=== PATIENT | female | born 1945 | race Caucasian/White ===

== ENCOUNTER 2017-02-08 11:18 | Outpatient (CLI) | payer MEDICARE, OTHER ==
--- NOTE | 2017-02-08 13:57 | BD ---
BONE DENSITOMETRY USING DEXA: Date: 02/08/17 HISTORY: Postmenopausal screening for osteoporosis. FINDINGS: Lumbar Spine: BMD (g/cm2) L1 0.585 T-Score: -3.7 Z-Score: -1.5 L2 0.655 T-Score: -3.4 Z-Score: -1.0 L3 0.715 T-Score: -3.4 Z-Score: -0.8 L4 0.777 T-Score: -2.6 Z-Score: 0.0 L1-L4 0.687 T-Score: -3.3 Z-Score: -0.9 Femoral Neck: 0.561 T-Score: -2.6 Z-Score: -0.6 Total Femur: 0.644 T-Score: -2.4 Z-Score: -0.5 IMPRESSION: Osteoporosis. POS: [facility]
--- NOTE | 2017-02-12 10:26 | MMO ---
BILATERAL SCREENING MAMMOGRAM: INDICATION: Annual exam. COMPARISON: Prior exam dated 01/20/13. FINDINGS: The interpretation of this exam was assisted with computer-aided detection. The breast parenchyma is heterogeneously dense. There are benign-appearing calcifications within the right and left breasts. No suspicious mass, cluster of microcalcifications, or area of architectural distortion is evident. IMPRESSION: BI-RADS category 2 - benign. Recommend routine annual mammographic screening. POS: [facility]
== END 2017-02-08 11:19 | disposition home or self-care (01) ==
LOC: MAMMO 11:18
PROVIDERS: ATTEND Family Medicine
DX: Z12.31 Encounter for screening mammogram for malignant neoplasm of breast (principal); M81.0 Age-related osteoporosis without current pathological fracture; Z78.0 Asymptomatic menopausal state
CPT/HCPCS: 77080; G0202; 77067

== ENCOUNTER 2017-02-14 09:18 | Outpatient (CLI) | payer OTHER | END 2017-02-14 09:19 | disposition home or self-care (01) | LOC: DTY/OP 09:18 | PROVIDERS: ATTEND Family Medicine | DX: G40.209 Localization-related (focal) (partial) symptomatic epilepsy and epileptic syndromes with complex partial seizures, not intractable, without status epilepticus (principal) | CPT/HCPCS: 97802 ==

== ENCOUNTER 2017-03-10 16:22 | Emergency (ER) | payer MEDICARE, OTHER ==
[2017-03-10 17:14] LABS: #Eosinphils 0.2 thou/uL (0.0-0.7); #Lymphocytes 1.1 thou/uL (1.20-3.40); #Monocytes 1.2 thou/uL (0.11-0.59); #Neutrophils 10.4 thou/uL (1.40-6.50); %Basophils 0.2 % (0.0-1.0); %Eosinophils 1.3 % (0.0-10.0); %Lymphocytes 8.6 % (21.0-51.0); Hematocrit 42.8 % (36.0-47.0); Mean Platelet Volume 7.5 fL (7.4-10.4); Red Blood Cell (RBC) Count 4.32 mill/uL (4.20-5.40); White Blood Cell (WBC) Count 12.8 thou/uL (4.8-10.8)
[2017-03-10 17:20] LABS: PTT 29.8 SEC (22.9-36.1); Prothrombin Time 14.6 SEC (12.0-14.7)
[2017-03-10 17:32] LABS: Anion Gap 13 mmol/L (10-20); BUN (Urea Nitrogen) 25 mg/dL (9.8-20.1); CK (CPK) 35 U/L (29-168); Calc. Creatinine Clearance 0 mL/min (70-130); Calcium 9.8 mg/dL (7.8-10.44); Carbon Dioxide 35 mmol/L (23-31); Chloride 100 mmol/L (98-107); Estimated GFR-MDRD 76; Magnesium 2.5 mg/dL (1.6-2.6)
[2017-03-10 17:37] LABS: Troponin I 0.016 ng/mL (< 0.028)
--- NOTE | 2017-03-10 17:53 | RAD ---
CHEST ONE VIEW PORTABLE: History: 71-year-old female with history of fall backwards and hitting her head after passing out. Comparison: 08-07-16 FINDINGS: Increased linear and interstitial markings are noted bilaterally, stable from prior study, evidence for chronic disease. Heart size is normal. No confluent pneumonia, overt edema, or pleural effusion. No pneumothorax. IMPRESSION: Stable chronic changes. No acute process. POS: [facility]
[2017-03-10 18:00] LABS: Bilirubin Negative (Negative); Blood, Urine Small (Negative); Glucose, Urine (Dipstick) Negative (Negative); Ketone, Urine Negative (Negative); Nitrite Negative (Negative); Protein, Urine (Dipstick) Negative (Neg-Trace); Urobilinogen 0.2 mg/dL (0.2-1.0)
[2017-03-10 18:03] LABS: Hyaline Casts/LPF 0-3 HYALINE CAST LPF (0-3 Hyaline); Squamous Epithelial 0-3 HPF (0-3)
[2017-03-10 18:17] LABS: Bacteria/HPF 2+ HPF (None Seen); Yeast-All Forms Rare HPF (None Seen)
--- NOTE | 2017-03-10 18:18 | CT ---
BRAIN CT WITHOUT IV CONTRAST: History: 71-year-old female who fell backwards and hit the back of her head with loss of consciousness and po ssible associated seizure. FINDINGS: There is some minimal atrophy and chronic white matter ischemic change. No mass or midline shift. No intra or extraaxial hemorrhage. Scalp swelling and injury to the occipital region. IMPRESSION: No acute intracranial process. No mass or bleed. Occipital soft tissue swelling and scalp injury. POS: [facility]
--- NOTE | 2017-03-10 18:19 | CT ---
CERVICAL SPINE CT SCAN WITHOUT IV CONTRAST: History: 71-year-old female with a history of falling backwards and hitting her head with possible seizure. FINDINGS: There are some generalized spondylosis changes of the cervical spine with some multilevel disc osteo phytosis and facet arthrosis. No evidence for acute fracture or facet dislocation. IMPRESSION: No evidence for acute fracture or dislocation. Evidence for spondylosis. Incidental biapical pleural thickening. POS: [facility]
[2017-03-10] MEDS ORDERED: cefTRIAXone\\ROCEPHIN 1 GM VIAL ONE (18:44)
[2017-03-10] MEDS ORDERED: Acetaminophen 325 MG TAB ONE ×2 (19:28)
== END 2017-03-10 19:40 | disposition home or self-care (01) ==
LOC: ERS 16:22
DX: S00.03XA Contusion of scalp, initial encounter (principal); R56.9 Unspecified convulsions; N39.0 Urinary tract infection, site not specified; F41.9 Anxiety disorder, unspecified; W01.198A Fall on same level from slipping, tripping and stumbling with subsequent striking against other object, initial encounter
CPT/HCPCS: 36415; 51701; 70450; 71010; 72125; 80048; 81003; 81015; 82553; 83735; 84146; 84484; 85025; 85610; 85730; 93005; 96374; A4353; J0696

== ENCOUNTER 2017-03-25 08:42 | Outpatient (CLI) | payer MEDICARE, OTHER ==
[2017-03-25 09:09] LABS: Bilirubin Negative (Negative); Blood, Urine Small (Negative); Glucose, Urine (Dipstick) Negative (Negative); Ketone, Urine 15 mg/dL (Negative); Nitrite Negative (Negative); Protein, Urine (Dipstick) Negative (Neg-Trace); Urobilinogen 0.2 mg/dL (0.2-1.0)
[2017-03-25 09:45] LABS: Squamous Epithelial 0-3 HPF (0-3)
[2017-03-25 09:46] LABS: Bacteria/HPF Rare-Few HPF (None Seen)
--- NOTE | 2017-03-25 11:23 | RAD ---
EXAM: THREE VIEWS SACRUM AND COCCYX: HISTORY: The patient fell in February. Pain. COMPARISON: None. FINDINGS: Limited evaluation of sacral alae. Based on the lateral projection, no definite fracture or disloca tion. IMPRESSION: No definite fracture or dislocation. POS: [facility]
== END 2017-03-25 08:43 | disposition home or self-care (01) ==
LOC: SCSRAD 08:42
PROVIDERS: ATTEND Family Medicine
DX: R82.90 Unspecified abnormal findings in urine (principal)
CPT/HCPCS: 72220; 81001; 87086

== ENCOUNTER 2018-01-10 09:06 | Outpatient (CLI) | payer MEDICARE ==
--- NOTE | 2018-01-10 13:04 | CT ---
CT HEAD NONCONTRAST: Date: 01/10/18 HISTORY: Seizure. Head injury. COMPARISON: 03/10/17. FINDINGS: There is no evidence of acute intracranial hemorrhage or infarct. The ventricles appear normal in siz e, shape, and position. There is no mass effect or shift of midline structures. Extracranial scalp he matoma over the left temporo-occipital calvarium. Visualized paranasal sinuses remain well aerated. IMPRESSION: No acute intracranial abnormalities are demonstrated. POS: [facility]
== END 2018-01-10 09:07 | disposition home or self-care (01) ==
LOC: SCSCT 09:06
PROVIDERS: ATTEND Family Medicine
DX: W19.XXXD Unspecified fall, subsequent encounter (principal)
CPT/HCPCS: 70450

== ENCOUNTER 2018-02-17 13:04 | Outpatient (CLI) | payer MEDICARE ==
--- NOTE | 2018-02-17 14:26 | MMO ---
BILATERAL SCREENING MAMMOGRAMS: Date: 02/17/18 Comparison made to prior exams from 2016 and 2012. This patient's mammogram was interpreted with the assistance of computer-aided detection. FINDINGS: Heterogeneously dense glandular pattern. There are scattered benign-appearing calcifications. No mass or distortion. No suspicious interval change identified. Recommend one year follow-up. IMPRESSION: BIRADS category 2 - benign findings. POS: [facility]
== END 2018-02-17 13:05 | disposition home or self-care (01) ==
LOC: SCSMAMMO 13:04
PROVIDERS: ATTEND Family Medicine
DX: Z12.31 Encounter for screening mammogram for malignant neoplasm of breast (principal)
CPT/HCPCS: 77067

== ENCOUNTER 2018-09-10 13:24 | Outpatient (CLI) | payer MEDICARE ==
[~2018-09-10 13:24] MED LIST: Gadobenate Dimeglumine 529 MG/1 ML (20ML VIAL) ONE
--- NOTE | 2018-09-10 15:20 | MRI ---
BRAIN MRI WITH AND WITHOUT CONTRAST: Date: 09/10/18 INDICATION: History of epilepsy with recurrent seizures (complex partial seizure), G40.209. Reference made to head CT dated 01/10/18. FINDINGS: The ventricular system is age-appropriate in size. There is mild to moderate chronic ischemic disease of the cerebral white matter. No hemorrhagic parenchymal susceptibility is evident. There is no evid ence of an acute territorial infarction. No mass effect or midline shift. No pathologic intra-axial e nhancement is seen. Bilateral mastoid effusions are present. There is pontine gliosis. IMPRESSION: 1. No acute intracranial abnormalities. 2. Mild to moderate chronic ischemic disease of the cerebral white matter. There is also pontine gli osis. 3. No pathologic intra-axial enhancement. POS: [facility]
== END 2018-09-10 13:25 | disposition home or self-care (01) ==
LOC: SCSMRI 13:24
PROVIDERS: ATTEND Psychiatry & Neurology Neurology
DX: G40.209 Localization-related (focal) (partial) symptomatic epilepsy and epileptic syndromes with complex partial seizures, not intractable, without status epilepticus (principal); G93.89 Other specified disorders of brain; I67.82 Cerebral ischemia
CPT/HCPCS: 70553; 82565; A9577

== ENCOUNTER 2021-02-03 11:57 | Outpatient (CLI) | payer MEDICARE | END 2021-02-03 11:58 | disposition home or self-care (01) | LOC: SCSRAD 11:57 | PROVIDERS: ATTEND Nurse Practitioner Family | DX: R07.81 Pleurodynia (principal) | CPT/HCPCS: 71046 ==

== ENCOUNTER 2022-08-29 09:51 | Outpatient (CLI) | payer MEDICARE | END 2022-08-29 09:52 | disposition home or self-care (01) | LOC: RAD 09:51 | PROVIDERS: ATTEND Internal Medicine Critical Care Medicine | DX: R06.00 Dyspnea, unspecified (principal); I51.7 Cardiomegaly | CPT/HCPCS: 71046 ==

== ENCOUNTER 2023-04-09 13:17 | Outpatient (CLI) | payer MEDICARE | END 2023-04-09 13:18 | disposition home or self-care (01) | LOC: SCSRAD 13:17 | PROVIDERS: ATTEND Physician Assistant | DX: R05.3 Chronic cough (principal); J18.1 Lobar pneumonia, unspecified organism; J98.8 Other specified respiratory disorders | CPT/HCPCS: 71046 ==